=== PATIENT | male | born 1995 | race Two or more races ===

== ENCOUNTER 2016-11-21 01:38 | Emergency (ER) | payer OTHER ==
[~2016-11-21] VITALS: Ht 180.3 cm; Wt 65.8 kg
[~2016-11-21 01:38] MED LIST: KEFLEX500 MG PO
== END 2016-11-21 04:26 | disposition home or self-care (01) ==
LOC: ED 01:38
PROC: 0HQFXZZ Repair Right Hand Skin, External Approach (ICD-10-PCS; principal; 2016-11-21)
DX: S61.212A Laceration without foreign body of right middle finger without damage to nail, initial encounter (principal); W26.8XXA Contact with other sharp object(s), not elsewhere classified, initial encounter
CPT/HCPCS: 12001; 99282

== ENCOUNTER 2023-03-05 22:18 | Emergency (ER) | payer OTHER ==
[~2023-03-05] VITALS: Ht 180.3 cm; Wt 59.7 kg
[2023-03-06 03:55] VITALS: BP 107/76
[2023-03-06 04:33] LABS: BASOPHILS 1.3 % (0-2); EOSINOPHILS 3.5 % (0-6); HEMATOCRIT 45.7 % (35.0-50.0); HEMOGLOBIN 15.2 g/dL (12.0-18.0); LYMPHOCYTES 30.4 % (24-44); MCH 29.2 (27-36); MCHC 33.2 g/dl (30-36); MONOCYTES 8.1 % (0-12); NEUTROPHILS 56.7 % (39-80); PLATELET COUNT 259 K/uL (140-440); RDW 14.5 (10.5-15.0)
[2023-03-06 04:40] LABS: BILIRUBIN, URINE NEGATIVE (negative); BLOOD/HGB, URINE MODERATE (Negative); KETONE, URINE NEGATIVE (Negative); NITRITE, URINE NEGATIVE (negative); PH, URINE 6.5 (5-7)
[2023-03-06 04:41] LABS: BACTERIA, URINE RARE /hpf (negative); CASTS, URINE NONE SEEN \\lpf; CRYSTALS, URINE NONE SEEN (0-1+); EPITHELIAL CELLS, URINE SQUAMOUS 1+ /lpf (0-1+); LEUK ESTERASE, URINE NEGATIVE (negative); REFLEX CULTURE, URINE Yes (No); WHITE BLOOD CELLS, URINE >50 /HPF (0-5)
[2023-03-06 04:45] LABS: BUN/CREATININE RATIO 15.3 (6.0-28.6); CREATININE, SERUM 0.98 mg/dL (0.70-1.30)
[2023-03-06 04:46] LABS: ALBUMIN 4.5 g/dL (3.4-5.0); ALBUMIN/GLOBULIN RATIO 1.22 (1.1-2.4); ANION GAP 9.9 (7-21); CALCIUM 9.3 mg/dL (8.5-10.1); POTASSIUM 3.9 mmol/L (3.5-5.1); PROTEIN, TOTAL 8.2 g/dL (6.4-8.2)
[2023-03-06 04:47] LABS: BILIRUBIN, TOTAL 0.5 ng/dL (0.2-1.0)
== END 2023-03-06 03:25 | disposition home or self-care (01) ==
LOC: ED 22:18
PROVIDERS: Family Medicine
DX: N39.0 Urinary tract infection, site not specified (principal); Z87.09 Personal history of other diseases of the respiratory system
CPT/HCPCS: 36415; 71045; 74176; 80053; 81001; 85025; 87088; 99285-25